=== PATIENT | female | born 1995 | race Caucasian/White ===

== ENCOUNTER 2016-11-10 13:07 | Emergency (ER) | payer OTHER ==
[2016-11-10 13:18] VITALS: RESP 16
--- NOTE | 2016-11-10 13:40 | EDPHY ---
H & P Stated Complaint: hit on top of head by box w/cans in it;no LOC;wants check for concussion Time Seen by Provider: 11/10/16 13:27 HPI/ROS: CHIEF COMPLAINT: Head injury HISTORY OF PRESENT ILLNESS: 21-year-old female generally healthy, no history of anticoagulant use, arrives via private vehicle after she was at work and a hard, heavy plastic been fell impacting her on the vertex of the head with positive amnesia, no loss of consciousness. Started vomiting approximately 45- 60 minutes later with multiple episodes of emesis. She describes feeling dizzy and experiencing gait instability. She is also complaining of mild nonprogressive non thunderclap headache. She denies: Visual disturbance, photophobia, chest pain, midline C-spine pain, peripheral paresthesia, weakness , numbness, laceration, abrasion, hematoma chest pain or trauma, back pain, abdominal pain or trauma. PRIMARY CARE PROVIDER: worker's compensation REVIEW OF SYSTEMS: A ten point review of systems was performed and is negative with the exception of the items mentioned in the HPI PAST MEDICAL/SURGICAL HISTORY: no anticoagulant use, SOCIAL HISTORY: works at [employer] PHYSICAL EXAM 1) GENERAL: Well-developed, well-nourished, alert and oriented. Appears to be in no acute distress. Answering questions appropriately. 2) HEAD: Normocephalic, atraumatic 3) HEENT: Pupils equal, round, reactive to light bilaterally. Negative Horners. Nasopharynx, oropharynx, clear. No deformity or angulation of nose. No septal hematoma. No rhinorrhea. No oral trauma. Ears bilaterally with normal tympanic membranes. No hemotympanum. No fluid or blood in the external auditory canal. No raccoon eyes. No Groves sign. Teeth are normally aligned with no gross malocclusion, TMJ bilaterally nontender, facial bones nontender including the zygomatic arch, maxilla mandible. 4) NECK: No cervical collar is on. Posterior cervical spine is nontender, no stepoff, no effusion. Full range of motion which does not elicit any midline cervical spine pain, no posterior midline tenderness, no step-off. Cervical collar is on.Cervical collar is removed while holding inline traction and patient is unable to completely differentiate between true midline pain versus just lateral of midline pain.Cervical collar is replaced at that point.and patient has no complaints of midline cervical pain, no effusion noted, trachea midline, no JVD. 5) LUNGS: Clear to auscultation bilaterally, no wheezes, no rhonchi, no retractions. No obvious signs of trauma. No chest wall pain. No flaring, no grunting. Moving symmetrically. No crepitus. 6) HEART: Regular rate and rhythm, 7) ABDOMEN: No guarding, no rebound, no focal tenderness, no peritoneal signs, no signs of trauma, no ecchymosis 8) MUSCULOSKELETAL: Moving all extremities, no focal areas of tenderness, no obvious trauma. 9) BACK: Patient logrolled while holding inline traction.No midline vertebral tenderness, no fluctuance, no step-off, no obvious trauma, no visual or palpable abnormality. 10) SKIN: No laceration. No abrasion 11) NEURO: Awake, alert, and oriented to person, place and time. Answers questions appropriately. There were no obvious focal neurologic abnormalities. Positive cerebellar dysfunction .Cranial nerves 2 through to 12 intact. Normal steady gait. Upper and lower extremities bilaterally with strength 5 / 5 , reflexes 2+. DIFFERENTIAL DIAGNOSIS: [ Not necessarily in any particular order, my differential diagnosis includes, but is not limited to, concussion, skull fracture, intraparenchymal contusion, subarachnoid, subdural and epidural hematoma. The patient understands that this diagnosis is provisional and can never be 100% accurate. - Personal History LMP (Females 10-55): 8-14 Days Ago Current Tetanus Diphtheria and Acellular Pertussis (TDAP): No - Medical/Surgical History Other PMH: PS - Social History Smoking Status: Current some day smoker Constitutional: Initial Vital Signs Temperature (C) 36.7 C 11/10/16 13:14 Heart Rate 63 11/10/16 13:14 Respiratory Rate 16 11/10/16 13:14 Blood Pressure 112/80 11/10/16 13:14 O2 Sat (%) 98 11/10/16 13:14 O2 Delivery Mode Room Air Allergies/Adverse Reactions: No Known Allergies Allergy (Unverified 11/10/16 13:19) Home Medications: Medication Instructions Recorded NK [No Known Home Meds] 11/10/16 Medical Decision Making - Diagnostics Imagin:29 p.m.: CT head negative per Radiology interpretation with images reviewed by myself ED Course/Re-evaluation: 1:40 p.m.: This patient does not meet [place] head injury guidelines. Recommended CT imaging of the head. Indications risks benefits discussed with patient and she verbalizes consent. 2:32 p.m.: Re-evaluation, she has a nonfocal neurologic exam, asymptomatic, answering questions appropriately. Discussed her negative imaging results. Usual and customary head injury precautions instructions provided. She feels comfortable being discharged home. All questions and concerns addressed by myself Departure - Departure Disposition: Home, Routine, Self-Care Clinical Impression: Head injury Qualifiers: Encounter type: initial encounter Qualified Code(s): S09.90XA - Unspecified injury of head, initial encounter Condition: Good Instructions: Head Injury (ED) Additional Instructions: ALTHOUGH THERE IS NO EVIDENCE OF SERIOUS HEAD INJURY AT THIS TIME, DELAYED SIGNS CAN APPEAR 24 TO 48 HOURS AFTER INJURY. WE RECOMMEND THAT YOU DESIGNATE A FRIEND OR FAMILY MEMBER TO OBSERVE YOU OVER THE NEXT FEW DAYS TO ENSURE THAT YOUR CONDITION IS PROGRESSING NORMALLY. PLEASE RETURN TO THE EMERGENCY DEPARTMENT (ED) IMMEDIATELY IF YOU HAVE INCREASED HEADACHE, PERSISTENT HEADACHE , VOMITING, WEAKNESS, CONFUSION OR VISUAL PROBLEMS. WE RECOMMEND THAT YOU DO NOT RESUME CONTACT SPORTS OR ACTIVITIES THAT TAKE COORDINATION OR BALANCE SUCH SKIING OR RIDING A BICYCLE UNTIL CLEARED TO DO SO BY YOUR DOCTOR OR BY A NEUROLOGIST. I have given you the name of a head injury specialist for follow-up. Recommend use your work comp provider 1st however. Referrals: Joan Kumar MD [Medical Doctor] - 5-7 days, call for appt. Stand Alone Forms: Work Comp Follow Up
[2016-11-10 14:46] VITALS: BP 112/77; PULSE 65; TEMP 98.4; O2SAT 99
== END 2016-11-10 14:46 | disposition home or self-care (01) ==
DX: S09.90XA Unspecified injury of head, initial encounter (principal); F17.200 Nicotine dependence, unspecified, uncomplicated; W20.8XXA Other cause of strike by thrown, projected or falling object, initial encounter; Y92.69 Other specified industrial and construction area as the place of occurrence of the external cause; Y99.0 Civilian activity done for income or pay; Y93.89 Activity, other specified